=== PATIENT | female | born 1985 | race Caucasian/White ===

== ENCOUNTER 2017-06-23 17:16 | Emergency (ER) | payer MEDICAID ==
[~2017-06-23] VITALS: Ht 154.9 cm; Wt 70.0 kg
[~2017-06-23 17:16] MED LIST: IBUP-779 PO
[2017-06-24] MEDS ORDERED: ACETAMINOPHEN 325MG TABLET PO PRN (06:45)
[2017-06-24 07:13] LABS: BASOPHILS % 0.4 % (0.0-2.0); EOSINOPHILS % 1.7 % (0.0-5.0); HEMATOCRIT. 38.3 % (36.0-48.0); HEMOGLOBIN. 12.5 g/dL (12.0-16.0); LYMPHOCYTES % 24.8 % (20.0-50.0); MEAN CORPUSCULAR HEMOGLOBIN 28.8 pg (28.0-32.0); MEAN CORPUSCULAR VOLUME 87.8 fL (81.0-99.0); MEAN PLATELET VOLUME 8.1 fl (7.4-10.4); MONOCYTES % 7.3 % (2.0-8.0); NEUTROPHILS % 65.8 % (40.0-76.0); PLATELET 303 x1000/uL (130-400); RED BLOOD CELL COUNT 4.36 mill/uL (4.2-5.4); RED CELL DISTRIBUTION WIDTH 14.7 % (11.6-14.6)
[2017-06-24 07:29] LABS: CARBON DIOXIDE 27 mEq/L (21-32); CHLORIDE 105 mEq/L (98-107)
[2017-06-24 08:12] LABS: COLOR URINE YELLOW (YELLOW); KETONES URINE NEGATIVE (NEGATIVE); LEUKOCYTE ESTERASE URINE 1+ (NEGATIVE); NITRITE URINE NEGATIVE (NEGATIVE); OCCULT BLOOD URINE 3+ (NEGATIVE); PROTEIN URINE NEGATIVE (NEGATIVE); SPECIFIC GRAVITY URINE 1.017 (1.005-1.030); UROBILINOGEN URINE 0.2 E.U./dL (0.2-1.0)
[2017-06-24 08:13] LABS: CLARITY URINE SL HAZY (CLEAR)
[2017-06-24 08:48] LABS: B-HCG QUANTITATIVE 2390 mIU/mL (<3)
[2017-06-24 09:25] VITALS: BP 98/53
== END 2017-06-24 09:27 | disposition home or self-care (01) ==
LOC: ER 20:24
DX: O20.0 Threatened abortion (principal); O23.41 Unspecified infection of urinary tract in pregnancy, first trimester; N39.0 Urinary tract infection, site not specified; Z3A.01 Less than 8 weeks gestation of pregnancy
CPT/HCPCS: 36415; 76801; 80053; 81001; 84702; 85025; 86900; 99285

== ENCOUNTER 2017-06-24 15:25 | Emergency (ER) | payer MEDICAID ==
[~2017-06-24] VITALS: Ht 144.8 cm; Wt 70.0 kg
[2017-06-24 15:43] VITALS: BP 125/77
== END 2017-06-24 22:00 | disposition left against medical advice (07) ==
LOC: ER 15:47
DX: Z53.21 Procedure and treatment not carried out due to patient leaving prior to being seen by health care provider (principal)

== ENCOUNTER 2017-10-29 20:26 | Emergency (ER) | payer BC, MEDICAID ==
[~2017-10-29] VITALS: Ht 162.6 cm; Wt 79.0 kg
[2017-10-29 22:18] LABS: CLARITY URINE TURBID (CLEAR); COLOR URINE ORANGE (YELLOW); KETONES URINE NEGATIVE (NEGATIVE); LEUKOCYTE ESTERASE URINE 2+ (NEGATIVE); NITRITE URINE NEGATIVE (NEGATIVE); OCCULT BLOOD URINE 3+ (NEGATIVE); PROTEIN URINE 3+ (NEGATIVE); SPECIFIC GRAVITY URINE 1.022 (1.005-1.030)
[2017-10-30] MEDS ORDERED: IBUPROFEN 600MG TABLET PO ONE (02:45)
[2017-10-30 03:28] VITALS: BP 101/51
== END 2017-10-30 03:30 | disposition home or self-care (01) ==
LOC: ER 20:26
DX: N39.0 Urinary tract infection, site not specified (principal); K21.9 Gastro-esophageal reflux disease without esophagitis
CPT/HCPCS: 81003; 81025; 87086; 99284; Z7610

== ENCOUNTER 2019-02-25 21:22 | Emergency (ER) | payer BC, MEDICAID ==
[~2019-02-25] VITALS: Ht 154.9 cm; Wt 70.0 kg
[2019-02-25 21:35] VITALS: BP 108/68
== END 2019-02-26 01:33 | disposition left against medical advice (07) ==
LOC: ER 21:22
DX: O26.891 Other specified pregnancy related conditions, first trimester (principal); R10.9 Unspecified abdominal pain; Z3A.08 8 weeks gestation of pregnancy; Z53.21 Procedure and treatment not carried out due to patient leaving prior to being seen by health care provider

== ENCOUNTER 2019-04-11 22:16 | Emergency (ER) | payer MEDICAID ==
[~2019-04-11] VITALS: Ht 165.1 cm; Wt 69.1 kg
[2019-04-12 01:30] VITALS: BP 109/61
[2019-04-14] MEDS ORDERED: IBUP-2029 MT (11:21)
[2019-04-14] MEDS ORDERED: NITR-87 MT (11:21)
== END 2019-04-12 01:34 | disposition home or self-care (01) ==
LOC: ER 22:16
DX: O03.9 Complete or unspecified spontaneous abortion without complication (principal); Z04.89 Encounter for examination and observation for other specified reasons
CPT/HCPCS: 99283

== ENCOUNTER 2019-04-14 04:15 | Day surgery (SDC) | payer MEDICAID ==
[~2019-04-14] VITALS: Ht 144.8 cm; Wt 64.0 kg
[2019-04-14] MEDS ORDERED: SODIUM CHLORIDE 0.9% 1,000 ML IV ONE ×2 (06:03→08:14)
[2019-04-14 06:16] LABS: BASOPHILS % 0.5 % (0.0-2.0); HEMATOCRIT. 36.7 % (36.0-48.0); HEMOGLOBIN. 12.6 g/dL (12.0-16.0); LYMPHOCYTES % 19.6 % (20.0-50.0); MEAN CORPUSCULAR HEMOGLOBIN 30.8 pg (28.0-32.0); MEAN CORPUSCULAR VOLUME 90.2 fL (81.0-99.0); MONOCYTES % 4.7 % (2.0-8.0); NEUTROPHILS % 74.2 % (40.0-76.0); PLATELET 252 x1000/uL (130-400); RED BLOOD CELL COUNT 4.07 mill/uL (4.2-5.4); RED CELL DISTRIBUTION WIDTH 13.6 % (11.6-14.6)
[2019-04-14 06:22] LABS: CHLORIDE 112 mEq/L (98-107)
[2019-04-14 06:24] LABS: INR 2.5; PROTHROMBIN TIME 25.3 sec (9.6-11.0)
[2019-04-14 06:35] LABS: B-HCG QUANTITATIVE 79 mIU/mL (<3)
[2019-04-14 06:40] LABS: CLARITY URINE TURBID (CLEAR); COLOR URINE RED (YELLOW); KETONES URINE 2+ (NEGATIVE); LEUKOCYTE ESTERASE URINE 3+ (NEGATIVE); NITRITE URINE POSITIVE (NEGATIVE); OCCULT BLOOD URINE 3+ (NEGATIVE); PROTEIN URINE 2+ (NEGATIVE); SPECIFIC GRAVITY URINE 1.019 (1.005-1.030)
[2019-04-14] MEDS ORDERED: MORPHINE SULFATE 4 MG/ML CPJ (NOT FOR IM USE) IV ONE (07:00)
[2019-04-14] MEDS ORDERED: ONDANSETRON HCL 4MG/2ML INJ IV ONE (07:00)
[2019-04-14] MEDS ORDERED: CEFAZOLIN 1000MG PREMIX 50 ML IV ONE (09:00)
[2019-04-14] MEDS ORDERED: PROPOFOL 200MG/20ML VIAL IV ONE (10:31)
[2019-04-14] MEDS ORDERED: FENTANYL CITRATE/PF 50MCG/ML 2ML VIAL ONE (10:31)
[2019-04-14] MEDS ORDERED: GLYCOPYRROLATE 0.2 MG/ML 2ML VIAL ONE (10:32)
[2019-04-14] MEDS ORDERED: ONDANSETRON HCL 4MG/2ML INJ ONE (10:48)
[2019-04-14] MEDS ORDERED: METOCLOPRAMIDE HCL 10MG/2ML VIAL ONE (10:48)
[2019-04-14 10:59] LABS: PROTHROMBIN TIME 10.7 sec (9.6-11.0)
[2019-04-14] MEDS ORDERED: IBUPROFEN 800MG TABLET PO SCH (11:15)
[2019-04-14] MEDS ORDERED: NITR-87 MT (11:21)
[2019-04-14] MEDS ORDERED: IBUP-2029 MT (11:21)
[2019-04-14 13:19] VITALS: BP 94/50
== END 2019-04-14 11:00 | disposition home or self-care (01) ==
LOC: ER 04:15 → OR 09:00 → CANBEDREQ 04-15 00:02
PROVIDERS: ATTEND Obstetrics & Gynecology
DX: O03.4 Incomplete spontaneous abortion without complication (principal); O02.1 Missed abortion; O23.42 Unspecified infection of urinary tract in pregnancy, second trimester; O99.112 Other diseases of the blood and blood-forming organs and certain disorders involving the immune mechanism complicating pregnancy, second trimester; O03.33 Metabolic disorder following incomplete spontaneous abortion; E87.8 Other disorders of electrolyte and fluid balance, not elsewhere classified; Z3A.17 17 weeks gestation of pregnancy
CPT/HCPCS: 36415; 59820; 76801; 76817; 80053; 81003; 81025; 84702; 85025; 85610; 86850; 86900; 86901; 86920; 88305; 93005; 96365; 96375; 99291; C1758; J0690; J2270; J2405; J2704; J2765; J3010; J3490; J7030

== ENCOUNTER 2019-08-20 19:24 | Emergency (ER) | payer MEDICAID ==
[~2019-08-20] VITALS: Ht 144.8 cm; Wt 70.0 kg
[~2019-08-20 19:24] MED LIST changes: +IBUP-2029 MT; +NITR-87 MT
[2019-08-20] MEDS ORDERED: ACETAMINOPHEN 325MG TABLET PO PRN (23:45)
[2019-08-21 00:13] LABS: BASOPHILS % 0.6 % (0.0-2.0); EOSINOPHILS % 1.2 % (0.0-5.0); HEMOGLOBIN. 13.2 g/dL (12.0-16.0); LYMPHOCYTES % 29.6 % (20.0-50.0); MEAN CORPUSCULAR HEMOGLOBIN 30.6 pg (28.0-32.0); MEAN CORPUSCULAR VOLUME 87.8 fL (81.0-99.0); MEAN PLATELET VOLUME 7.7 fl (7.4-10.4); MONOCYTES % 5.7 % (2.0-8.0); NEUTROPHILS % 62.9 % (40.0-76.0); PLATELET 283 x1000/uL (130-400); RED BLOOD CELL COUNT 4.33 mill/uL (4.2-5.4); RED CELL DISTRIBUTION WIDTH 13.8 % (11.6-14.6)
[2019-08-21 00:23] LABS: CHLORIDE 107 mEq/L (98-107)
[2019-08-21 00:47] LABS: B-HCG QUANTITATIVE 32298 mIU/mL (<3)
[2019-08-21 00:50] LABS: CLARITY URINE CLOUDY (CLEAR); COLOR URINE YELLOW (YELLOW)
[2019-08-21 00:51] LABS: KETONES URINE 1+ (NEGATIVE); NITRITE URINE POSITIVE (NEGATIVE); OCCULT BLOOD URINE TRACE (NEGATIVE); PH URINE 5.5 (4.5-8.0); PROTEIN URINE NEGATIVE (NEGATIVE); SPECIFIC GRAVITY URINE 1.022 (1.005-1.030)
[2019-08-21 00:52] LABS: LEUKOCYTE ESTERASE URINE 1+ (NEGATIVE)
[2019-08-21] MEDS ORDERED: CEPHALEXIN 250MG CAPSULE PO SCH (01:30)
[2019-08-21 01:35] VITALS: BP 101/72
== END 2019-08-21 01:36 | disposition home or self-care (01) ==
LOC: ER 19:24
DX: O23.42 Unspecified infection of urinary tract in pregnancy, second trimester (principal); Z3A.15 15 weeks gestation of pregnancy
CPT/HCPCS: 36415; 76805; 80053; 81003; 81025; 84702; 85025; 86850; 86900; 99284

== ENCOUNTER 2019-11-21 17:58 | Inpatient (IN) | payer MEDICAID, OTHER ==
[~2019-11-21] VITALS: Ht 154.9 cm; Wt 76.2 kg
[2019-11-21] MEDS ORDERED: ACETAMINOPHEN 325MG TABLET PO STA (19:15)
[2019-11-21 22:04] LABS: BASOPHILS % 0.3 % (0.0-2.0); HEMATOCRIT. 33.6 % (36.0-48.0); HEMOGLOBIN. 11.6 g/dL (12.0-16.0); LYMPHOCYTES % 14.5 % (20.0-50.0); MEAN CORPUSCULAR HEMOGLOBIN 31.4 pg (28.0-32.0); MEAN CORPUSCULAR VOLUME 91.3 fL (81.0-99.0); MEAN PLATELET VOLUME 8.3 fl (7.4-10.4); MONOCYTES % 2.6 % (2.0-8.0); NEUTROPHILS % 82.6 % (40.0-76.0); PLATELET 200 x1000/uL (130-400); RED BLOOD CELL COUNT 3.68 mill/uL (4.2-5.4); RED CELL DISTRIBUTION WIDTH 14.1 % (11.6-14.6)
[2019-11-21 22:09] LABS: CLARITY URINE TURBID (CLEAR); COLOR URINE DARK YELLOW (YELLOW); KETONES URINE 4+ (NEGATIVE); LEUKOCYTE ESTERASE URINE 3+ (NEGATIVE); NITRITE URINE POSITIVE (NEGATIVE); OCCULT BLOOD URINE NEGATIVE (NEGATIVE); PROTEIN URINE 2+ (NEGATIVE); SPECIFIC GRAVITY URINE 1.025 (1.005-1.030)
[2019-11-21 22:14] LABS: CHLORIDE 105 mEq/L (98-107)
[2019-11-21 22:15] LABS: HCG SCREEN POSITIVE
[2019-11-21 23:44] VITALS: BP 90/41
[2019-11-21] MEDS ORDERED: POTASSIUM CHLORIDE 20MEQ TABLET SR PO NR (23:45)
[2019-11-21] MEDS ORDERED: ACETAMINOPHEN 325MG TABLET PO PRN (23:45)
[2019-11-21] MEDS ORDERED: DIPHENHYDRAMINE 50MG/ML VIAL IV PRN (23:45)
[2019-11-21] MEDS ORDERED: ALBUTEROL 6.7GM HFA INHALER ORI PRN (23:45)
[2019-11-21] MEDS ORDERED: IBUPROFEN 600MG TABLET PO PRN (23:45)
[2019-11-22] VITALS (7 sets, daily range): BP systolic 89–97; BP diastolic 41–54
[2019-11-22] MEDS ORDERED: MAGNESIUM/ALUMINUM HYDROXIDE/SIMETHICONE 30ML UDC PO PRN
[2019-11-22] MEDS: GUAIFENESIN 200MG/10ML SUGAR FREE UDC PO PRN ×2 (01:08→20:55)
[2019-11-22] MEDS: CEFTRIAXONE 1 G PREMIX 50 ML IV SCH (01:46)
[2019-11-22] MEDS: SODIUM CHLORIDE 0.9% INJ 3ML FLUSH IVF SCH ×3 (06:00→20:55)
[2019-11-22] MEDS: FOLIC ACID 1MG TABLET PO SCH (08:53)
[2019-11-22] MEDS: PRENATAL VIT/FE FUMARATE/FA TABLET PO SCH (08:53)
[2019-11-22] MEDS: GUAIFENESIN 600MG ER TABLET PO SCH ×2 (08:53→20:55)
[2019-11-22] MEDS: ALBUTEROL 6.7GM HFA INHALER ORI SCH ×3 (10:45→22:45)
[2019-11-22] MEDS: ACETAMINOPHEN 325MG TABLET PO PRN (21:42)
[2019-11-23] MEDS: CEFTRIAXONE 1 G PREMIX 50 ML IV SCH (01:24)
[2019-11-23 04:00] VITALS: BP 103/47
[2019-11-23] MEDS: ALBUTEROL 6.7GM HFA INHALER ORI SCH ×4 (04:06→22:17)
[2019-11-23] MEDS: SODIUM CHLORIDE 0.9% INJ 3ML FLUSH IVF SCH ×2 (05:27→22:05)
[2019-11-23 05:47] LABS: *AMPHETAMINES SCREEN URINE NEGATIVE (NEGATIVE); *BARBITURATES SCREEN URINE NEGATIVE (NEGATIVE)
[2019-11-23 05:48] LABS: *BENZODIAZEPINES SCREEN URINE NEGATIVE (NEGATIVE); *COCAINE SCREEN URINE NEGATIVE (NEGATIVE); METHADONE URINE SCREEN NEGATIVE (NEGATIVE); OPIATES URINE SCREEN NEGATIVE (NEGATIVE); PHENCYCLIDINE URINE SCREEN NEGATIVE (NEGATIVE)
[2019-11-23 05:49] LABS: CANNABINOID URINE SCREEN NEGATIVE (NEGATIVE)
[2019-11-23 06:13] LABS: CHLORIDE 106 mEq/L (98-107)
[2019-11-23 08:00] VITALS: BP 95/52
[2019-11-23] MEDS: GUAIFENESIN 600MG ER TABLET PO SCH ×2 (08:17→22:16)
[2019-11-23] MEDS: PRENATAL VIT/FE FUMARATE/FA TABLET PO SCH (08:17)
[2019-11-23] MEDS: FOLIC ACID 1MG TABLET PO SCH (08:17)
[2019-11-23] MEDS ORDERED: POTASSIUM CHLORIDE 20MEQ TABLET SR PO NR ×2 (09:30→12:30)
[2019-11-23] MEDS: ACETAMINOPHEN 325MG TABLET PO PRN (11:21)
[2019-11-23 12:00] VITALS: BP 90/42
[2019-11-23] MEDS: AZITHROMYCIN 250 MG TABLET PO SCH (13:11)
[2019-11-23] MEDS ORDERED: REMDESIVIR 200 MG in SODIUM CHLORIDE 0.9% 250 ML IV NR (15:00)
[2019-11-23] MEDS: ENOXAPARIN 40MG/0.4ML SYR SUBCUT SCH (15:25)
[2019-11-23 16:00] VITALS: BP 90/52
[2019-11-23 20:00] VITALS: BP 99/62
[2019-11-24] VITALS (8 sets, daily range): BP systolic 81–115; BP diastolic 39–80
[2019-11-24] MEDS: CEFTRIAXONE 1 G PREMIX 50 ML IV SCH (01:14)
[2019-11-24] MEDS: SODIUM CHLORIDE 0.9% INJ 3ML FLUSH IVF SCH ×4 (02:26→21:14)
[2019-11-24] MEDS: ALBUTEROL 6.7GM HFA INHALER ORI SCH ×4 (04:51→22:26)
[2019-11-24 08:28] LABS: CHLORIDE 111 mEq/L (98-107)
[2019-11-24] MEDS: PRENATAL VIT/FE FUMARATE/FA TABLET PO SCH (08:47)
[2019-11-24] MEDS: GUAIFENESIN 600MG ER TABLET PO SCH ×2 (08:47→21:14)
[2019-11-24] MEDS: AZITHROMYCIN 250 MG TABLET PO SCH (08:47)
[2019-11-24] MEDS: FOLIC ACID 1MG TABLET PO SCH (08:47)
[2019-11-24] MEDS: ENOXAPARIN 40MG/0.4ML SYR SUBCUT SCH (08:48)
[2019-11-24] MEDS ORDERED: DEXT 5%/0.45% NACL KCL 20MEQ/L 1,000 ML IV SCH (09:30)
[2019-11-24] MEDS ORDERED: SODIUM CHLORIDE 0.9% 1,000 ML IV ONE (10:45)
[2019-11-24] MEDS: THROAT LOZENGES-BENZOCAINE/MENTH/CETYLPYRD CL LOZENGES MM PRN (12:26)
[2019-11-24] MEDS: REMDESIVIR 100 MG in SODIUM CHLORIDE 0.9% 250 ML IV SCH (15:25)
[2019-11-25] VITALS: BP 80/43
[2019-11-25] MEDS: CEFTRIAXONE 1 G PREMIX 50 ML IV SCH (00:19)
[2019-11-25 04:00] VITALS: BP 89/53
[2019-11-25] MEDS: THROAT LOZENGES-BENZOCAINE/MENTH/CETYLPYRD CL LOZENGES MM PRN (04:13)
[2019-11-25] MEDS: ALBUTEROL 6.7GM HFA INHALER ORI SCH ×4 (04:23→21:47)
[2019-11-25] MEDS: SODIUM CHLORIDE 0.9% INJ 3ML FLUSH IVF SCH ×3 (05:43→21:47)
[2019-11-25 08:00] VITALS: BP 85/54
[2019-11-25] MEDS: PRENATAL VIT/FE FUMARATE/FA TABLET PO SCH (08:43)
[2019-11-25] MEDS: GUAIFENESIN 600MG ER TABLET PO SCH ×2 (08:43→21:46)
[2019-11-25] MEDS: FOLIC ACID 1MG TABLET PO SCH (08:43)
[2019-11-25] MEDS: AZITHROMYCIN 250 MG TABLET PO SCH (08:43)
[2019-11-25] MEDS: ENOXAPARIN 40MG/0.4ML SYR SUBCUT SCH (08:43)
[2019-11-25 08:49] LABS: CHLORIDE 111 mEq/L (98-107)
[2019-11-25 12:00] VITALS: BP 82/50
[2019-11-25] MEDS: REMDESIVIR 100 MG in SODIUM CHLORIDE 0.9% 250 ML IV SCH (15:15)
[2019-11-25 16:00] VITALS: BP 88/56
[2019-11-25 20:00] VITALS: BP 86/50
[2019-11-26] MEDS: CEFTRIAXONE 1 G PREMIX 50 ML IV SCH
[2019-11-26 00:09] VITALS: BP 82/47
[2019-11-26 04:00] VITALS: BP 84/50
[2019-11-26] MEDS: ALBUTEROL 6.7GM HFA INHALER ORI SCH ×4 (04:06→22:45)
[2019-11-26] MEDS: SODIUM CHLORIDE 0.9% INJ 3ML FLUSH IVF SCH ×3 (05:01→23:08)
[2019-11-26 07:53] LABS: CHLORIDE 110 mEq/L (98-107)
[2019-11-26 08:00] VITALS: BP 86/50
[2019-11-26] MEDS: AZITHROMYCIN 250 MG TABLET PO SCH (08:03)
[2019-11-26] MEDS: GUAIFENESIN 600MG ER TABLET PO SCH ×2 (08:03→23:08)
[2019-11-26] MEDS: PRENATAL VIT/FE FUMARATE/FA TABLET PO SCH (08:03)
[2019-11-26] MEDS: ENOXAPARIN 40MG/0.4ML SYR SUBCUT SCH (08:03)
[2019-11-26] MEDS: FOLIC ACID 1MG TABLET PO SCH (08:03)
[2019-11-26 12:00] VITALS: BP 97/55
[2019-11-26] MEDS: REMDESIVIR 100 MG in SODIUM CHLORIDE 0.9% 250 ML IV SCH (14:07)
[2019-11-26 16:00] VITALS: BP 99/58
[2019-11-26 20:00] VITALS: BP 95/47
[2019-11-27 00:20] VITALS: BP 86/45
[2019-11-27] MEDS: CEFTRIAXONE 1 G PREMIX 50 ML IV SCH (00:23)
[2019-11-27 04:00] VITALS: BP 91/49
[2019-11-27] MEDS: ALBUTEROL 6.7GM HFA INHALER ORI SCH ×4 (04:45→23:27)
[2019-11-27] MEDS: SODIUM CHLORIDE 0.9% INJ 3ML FLUSH IVF SCH ×3 (06:00→21:11)
[2019-11-27 07:19] LABS: CHLORIDE 109 mEq/L (98-107)
[2019-11-27 08:00] VITALS: BP 90/41
[2019-11-27] MEDS: AZITHROMYCIN 250 MG TABLET PO SCH (09:54)
[2019-11-27] MEDS: GUAIFENESIN 600MG ER TABLET PO SCH ×2 (09:54→21:11)
[2019-11-27] MEDS: ENOXAPARIN 40MG/0.4ML SYR SUBCUT SCH (09:54)
[2019-11-27] MEDS: PRENATAL VIT/FE FUMARATE/FA TABLET PO SCH (09:54)
[2019-11-27] MEDS: FOLIC ACID 1MG TABLET PO SCH (09:54)
[2019-11-27 12:00] VITALS: BP 94/51
[2019-11-27 16:00] VITALS: BP 93/48
[2019-11-27] MEDS: REMDESIVIR 100 MG in SODIUM CHLORIDE 0.9% 250 ML IV SCH (16:02)
[2019-11-27 20:00] VITALS: BP 91/38
[2019-11-28] VITALS: BP 132/86
[2019-11-28 04:00] VITALS: BP 92/47
[2019-11-28] MEDS: SODIUM CHLORIDE 0.9% INJ 3ML FLUSH IVF SCH ×3 (05:08→21:51)
[2019-11-28] MEDS: ALBUTEROL 6.7GM HFA INHALER ORI SCH ×4 (05:08→21:51)
[2019-11-28 07:45] LABS: CHLORIDE 109 mEq/L (98-107)
[2019-11-28 08:00] VITALS: BP 87/51
[2019-11-28] MEDS: PRENATAL VIT/FE FUMARATE/FA TABLET PO SCH (08:21)
[2019-11-28] MEDS: ENOXAPARIN 40MG/0.4ML SYR SUBCUT SCH (08:21)
[2019-11-28] MEDS: AZITHROMYCIN 250 MG TABLET PO SCH (08:21)
[2019-11-28] MEDS: GUAIFENESIN 600MG ER TABLET PO SCH ×2 (08:21→21:51)
[2019-11-28] MEDS: FOLIC ACID 1MG TABLET PO SCH (08:21)
[2019-11-28 12:00] VITALS: BP 94/52
[2019-11-28] MEDS ORDERED: SODIUM CHLORIDE 0.9% 1,000 ML IV ONE (13:45)
[2019-11-28 16:00] VITALS: BP 90/53
[2019-11-28 20:00] VITALS: BP 92/49
[2019-11-29] VITALS: BP 94/50
[2019-11-29 04:00] VITALS: BP 89/46
[2019-11-29] MEDS: ALBUTEROL 6.7GM HFA INHALER ORI SCH ×2 (05:08→10:09)
[2019-11-29] MEDS: SODIUM CHLORIDE 0.9% INJ 3ML FLUSH IVF SCH ×2 (05:09→13:49)
[2019-11-29 08:00] VITALS: BP_SYST 81; BP_SYST 84; BP_DIAS 34
[2019-11-29] MEDS: GUAIFENESIN 600MG ER TABLET PO SCH (08:24)
[2019-11-29] MEDS: FOLIC ACID 1MG TABLET PO SCH (08:24)
[2019-11-29] MEDS: PRENATAL VIT/FE FUMARATE/FA TABLET PO SCH (08:24)
[2019-11-29] MEDS: ENOXAPARIN 40MG/0.4ML SYR SUBCUT SCH (08:25)
[2019-11-29] MEDS ORDERED: ALBUMIN HUMAN 25GM/100ML (25%) IV NR (09:00)
[2019-11-29] MEDS ORDERED: ALBU6.7H9 ORI (11:59)
[2019-11-29] MEDS ORDERED: AZIT250T12 PO (11:59)
[2019-11-29] MEDS ORDERED: PREN1COM16 MT (11:59)
[2019-11-29 12:00] VITALS: BP 90/40
[2019-11-29 12:17] VITALS: BP 90/40
== END 2019-11-29 13:50 | disposition home or self-care (01) | DRG 566 ==
LOC: ER 17:58 → MICUSO 22:39 → 7WST 23:50
PROVIDERS: ADMIT Internal Medicine; ATTEND Internal Medicine
DX: O98.812 Other maternal infectious and parasitic diseases complicating pregnancy, second trimester (principal); A41.89 Other specified sepsis; U07.1 COVID-19; J96.01 Acute respiratory failure with hypoxia; R17 Unspecified jaundice; O23.42 Unspecified infection of urinary tract in pregnancy, second trimester; O98.512 Other viral diseases complicating pregnancy, second trimester; B97.89 Other viral agents as the cause of diseases classified elsewhere; J12.89 Other viral pneumonia; O99.512 Diseases of the respiratory system complicating pregnancy, second trimester; O98.513 Other viral diseases complicating pregnancy, third trimester; R74.0 Nonspecific elevation of levels of transaminase and lactic acid dehydrogenase [LDH]; Z3A.27 27 weeks gestation of pregnancy; Z79.1 Long term (current) use of non-steroidal anti-inflammatories (NSAID); Z79.899 Other long term (current) drug therapy; Z87.440 Personal history of urinary (tract) infections
CPT/HCPCS: 36415; 71045; 76805; 76818; 80048; 80053; 80305; 81003; 82728; 83735; 84145; 84703; 85025; 86140; 93005; 99285; J0696; J1650; J7050; P9047; Q9957; U0003-CS

== ENCOUNTER 2020-02-07 23:32 | Inpatient (IN) | payer MEDICAID ==
[~2020-02-07] VITALS: Ht 149.9 cm; Wt 77.1 kg
[~2020-02-07 23:32] MED LIST changes: +ALBU6.7H9 ORI; +AZIT250T12 PO; +PREN1COM16 MT
[2020-02-08] MEDS ORDERED: LACTATED RINGERS 1,000 ML IV SCH (00:12)
[2020-02-08] MEDS ORDERED: DEXT 5%/LR + PITOCIN 20UNITS/L 1,000 ML IV SCH ×2 (00:12→02:12)
[2020-02-08] MEDS ORDERED: BUTORPHANOL TARTRATE 2 MG/ML VIAL IV PRN (00:15)
[2020-02-08] MEDS ORDERED: LIDOCAINE HCL 1% 20ML VIAL (Pyxis) INJ INFIL SCH (00:15)
[2020-02-08] MEDS ORDERED: NALOXONE HCL 0.4 MG/ML 1ML VIAL IM PRN (00:15)
[2020-02-08] MEDS ORDERED: METHYLERGONOVINE MALEATE 0.2 MG/ML IM PRN (00:15)
[2020-02-08] MEDS ORDERED: CARBOPROST TROMETHAMINE 250 MCG/ML AMPUL IM PRN (00:15)
[2020-02-08] MEDS: AMPICILLIN 2,000 MG in SODIUM CHLORIDE 0.9% 100 ML IV SCH ×2 (00:41→00:49)
[2020-02-08 00:50] LABS: CLARITY URINE CLEAR (CLEAR); COLOR URINE DARK YELLOW (YELLOW); KETONES URINE NEGATIVE (NEGATIVE); LEUKOCYTE ESTERASE URINE 1+ (NEGATIVE); NITRITE URINE NEGATIVE (NEGATIVE); OCCULT BLOOD URINE NEGATIVE (NEGATIVE); PH URINE 5.5 (4.5-8.0); PROTEIN URINE TRACE (NEGATIVE); SPECIFIC GRAVITY URINE 1.029 (1.005-1.030)
[2020-02-08 01:02] LABS: *AMPHETAMINES SCREEN URINE NEGATIVE (NEGATIVE); *BARBITURATES SCREEN URINE NEGATIVE (NEGATIVE); *BENZODIAZEPINES SCREEN URINE NEGATIVE (NEGATIVE); *COCAINE SCREEN URINE NEGATIVE (NEGATIVE); CANNABINOID URINE SCREEN NEGATIVE (NEGATIVE); METHADONE URINE SCREEN NEGATIVE (NEGATIVE); OPIATES URINE SCREEN NEGATIVE (NEGATIVE); PHENCYCLIDINE URINE SCREEN NEGATIVE (NEGATIVE)
[2020-02-08 01:06] LABS: BASOPHILS % 0.3 % (0.0-2.0); EOSINOPHILS % 0.9 % (0.0-5.0); HEMATOCRIT. 32.4 % (36.0-48.0); HEMOGLOBIN. 10.9 g/dL (12.0-16.0); LYMPHOCYTES % 23.9 % (20.0-50.0); MEAN CORPUSCULAR HEMOGLOBIN 28.9 pg (28.0-32.0); MEAN PLATELET VOLUME 8.1 fl (7.4-10.4); MONOCYTES % 6.9 % (2.0-8.0); PLATELET 280 x1000/uL (130-400); RED BLOOD CELL COUNT 3.77 mill/uL (4.2-5.4); RED CELL DISTRIBUTION WIDTH 15.4 % (11.6-14.6)
[2020-02-08 01:29] LABS: HEPATITIS B SURFACE ANTIGEN NEGATIVE
[2020-02-08 01:36] LABS: INR 0.9; PARTIAL THROMBOPLASTIN TIME 26.3 sec (23.4-31.0); PROTHROMBIN TIME 9.5 sec (9.6-11.0)
[2020-02-08] MEDS ORDERED: METHYLERGONOVINE MALEATE 0.2 MG/ML ONE (02:00)
[2020-02-08] MEDS ORDERED: RHO(D) IMMUNE GLOBULIN 300 MCG/SYR IM PRN (02:15)
[2020-02-08] MEDS ORDERED: IBUPROFEN 400MG TABLET PO PRN (02:15)
[2020-02-08 04:15] VITALS: BP 104/51
[2020-02-08] MEDS ORDERED: AMPICILLIN 1,000 MG in SODIUM CHLORIDE 0.9% 50 ML IV SCH (06:00)
[2020-02-08 06:12] LABS: BASOPHILS % 0.5 % (0.0-2.0); EOSINOPHILS % 0.3 % (0.0-5.0); HEMATOCRIT. 33.7 % (36.0-48.0); HEMOGLOBIN. 11.3 g/dL (12.0-16.0); LYMPHOCYTES % 11.8 % (20.0-50.0); MEAN CORPUSCULAR HEMOGLOBIN 28.7 pg (28.0-32.0); MEAN CORPUSCULAR VOLUME 85.1 fL (81.0-99.0); MEAN PLATELET VOLUME 8.4 fl (7.4-10.4); MONOCYTES % 3.8 % (2.0-8.0); NEUTROPHILS % 83.6 % (40.0-76.0); PLATELET 259 x1000/uL (130-400); RED BLOOD CELL COUNT 3.96 mill/uL (4.2-5.4); RED CELL DISTRIBUTION WIDTH 15.3 % (11.6-14.6)
[2020-02-08] MEDS: IBUPROFEN 800MG TABLET PO PRN ×2 (07:18→14:50)
[2020-02-08 07:54] VITALS: BP 104/55
[2020-02-08 20:00] VITALS: BP 91/51
[2020-02-09] MEDS: IBUPROFEN 800MG TABLET PO PRN ×2 (02:42→08:25)
[2020-02-09 04:00] VITALS: BP 109/53
[2020-02-09 07:31] VITALS: BP 91/52
[2020-02-09 09:07] LABS: BASOPHILS % 0.5 % (0.0-2.0); EOSINOPHILS % 0.6 % (0.0-5.0); HEMATOCRIT. 32.7 % (36.0-48.0); HEMOGLOBIN. 10.8 g/dL (12.0-16.0); LYMPHOCYTES % 19.3 % (20.0-50.0); MEAN CORPUSCULAR HEMOGLOBIN 28.5 pg (28.0-32.0); MEAN CORPUSCULAR VOLUME 86.3 fL (81.0-99.0); MEAN PLATELET VOLUME 8.1 fl (7.4-10.4); MONOCYTES % 3.4 % (2.0-8.0); NEUTROPHILS % 76.2 % (40.0-76.0); PLATELET 250 x1000/uL (130-400); RED BLOOD CELL COUNT 3.79 mill/uL (4.2-5.4); RED CELL DISTRIBUTION WIDTH 15.5 % (11.6-14.6)
== END 2020-02-09 12:10 | disposition home or self-care (01) | DRG 560 ==
LOC: OBSVTOIN 23:32 → 8 EST LDRP 23:32 → 8EST 02-08 04:11
PROVIDERS: ADMIT Obstetrics & Gynecology; ATTEND Obstetrics & Gynecology
PROC: 10E0XZZ Delivery of Products of Conception, External Approach (ICD-10-PCS; principal; 2020-02-08)
DX: O99.02 Anemia complicating childbirth (principal); Z3A.39 39 weeks gestation of pregnancy; Z37.0 Single live birth; D62 Acute posthemorrhagic anemia
CPT/HCPCS: 36415; 80305; 81003; 85025; 86592; 86703; 86762; 86850; 86900; 87340; 99281; G0378; J0290; J0595; J2210; J2590; J7050

== ENCOUNTER 2020-05-29 09:39 | Emergency (ER) | payer MEDICAID ==
[~2020-05-29] VITALS: Ht 157.5 cm; Wt 65.0 kg
[~2020-05-29 09:39] MED LIST changes: -ALBU6.7H9 ORI; -AZIT250T12 PO; -NITR-87 MT; -PREN1COM16 MT
[2020-05-29 09:46] VITALS: BP 113/70
[2020-05-29 10:41] LABS: CLARITY URINE TURBID (CLEAR); KETONES URINE TRACE (NEGATIVE); LEUKOCYTE ESTERASE URINE 3+ (NEGATIVE); NITRITE URINE NEGATIVE (NEGATIVE); OCCULT BLOOD URINE 3+ (NEGATIVE); PH URINE 7.5 (4.5-8.0); PROTEIN URINE 1+ (NEGATIVE); SPECIFIC GRAVITY URINE 1.021 (1.005-1.030)
[2020-05-29] MEDS ORDERED: NITROFURANTOIN 100MG M/M CAPSULE PO ONE (10:45)
[2020-05-29] MEDS ORDERED: PHENAZOPYRIDINE HCL 100MG TABLET PO ONE (10:45)
[2020-05-29 10:48] LABS: COLOR URINE ORANGE (YELLOW)
== END 2020-05-29 11:41 | disposition home or self-care (01) ==
LOC: ER 09:39
DX: N39.0 Urinary tract infection, site not specified (principal)
CPT/HCPCS: 81003; 81025; 99283

== ENCOUNTER 2020-09-19 09:10 | Emergency (ER) | payer MEDICAID ==
[~2020-09-19] VITALS: Ht 165.1 cm; Wt 65.0 kg
[2020-09-19] MEDS ORDERED: ACETAMINOPHEN 325MG TABLET PO STA (10:01)
[2020-09-19 10:32] LABS: BASOPHILS % 0.5 % (0.0-2.0); EOSINOPHILS % 0.4 % (0.0-5.0); HEMATOCRIT. 33.5 % (36.0-48.0); HEMOGLOBIN. 11.5 g/dL (12.0-16.0); LYMPHOCYTES % 18.7 % (20.0-50.0); MEAN CORPUSCULAR HEMOGLOBIN 30.5 pg (28.0-32.0); MEAN CORPUSCULAR VOLUME 89.1 fL (81.0-99.0); MEAN PLATELET VOLUME 7.7 fl (7.4-10.4); MONOCYTES % 4.8 % (2.0-8.0); NEUTROPHILS % 75.6 % (40.0-76.0); PLATELET 267 x1000/uL (130-400); RED BLOOD CELL COUNT 3.76 mill/uL (4.2-5.4); RED CELL DISTRIBUTION WIDTH 14.3 % (11.6-14.6)
[2020-09-19 10:39] LABS: CHLORIDE 110 mEq/L (98-107)
[2020-09-19 10:43] LABS: INR 0.9; PROTHROMBIN TIME 10.2 sec (9.6-11.0)
[2020-09-19 11:01] LABS: B-HCG QUANTITATIVE 15326 mIU/mL (<3)
[2020-09-19 11:14] LABS: CLARITY URINE CLOUDY (CLEAR); COLOR URINE DARK YELLOW (YELLOW); KETONES URINE 1+ (NEGATIVE); LEUKOCYTE ESTERASE URINE 2+ (NEGATIVE); NITRITE URINE NEGATIVE (NEGATIVE); OCCULT BLOOD URINE NEGATIVE (NEGATIVE); PROTEIN URINE NEGATIVE (NEGATIVE); SPECIFIC GRAVITY URINE 1.026 (1.005-1.030)
[2020-09-19] MEDS ORDERED: PREN-52 MT (12:36)
[2020-09-19] MEDS ORDERED: CEPH500C2 MT (12:36)
[2020-09-19] MEDS ORDERED: CEFTRIAXONE SODIUM 500 MG/VIAL IM ONE (13:00)
[2020-09-19] MEDS ORDERED: AZITHROMYCIN 500 MG TABLET PO ONE (13:00)
[2020-09-19 13:25] VITALS: BP 112/52
[2020-09-23 07:07] LABS: NEISSERIA GONORRHOEAE NAA Equivocal (Negative)
== END 2020-09-19 13:35 | disposition home or self-care (01) ==
LOC: ER 09:10
DX: O23.42 Unspecified infection of urinary tract in pregnancy, second trimester (principal); Z20.2 Contact with and (suspected) exposure to infections with a predominantly sexual mode of transmission; Z3A.18 18 weeks gestation of pregnancy
CPT/HCPCS: 36415; 76805; 80053; 81003; 81025; 83690; 84702; 85025; 85610; 86850; 86900; 86901; 87491; 87591; 93005; 96372; 99285; J0696

== ENCOUNTER 2021-02-05 17:49 | Observation (INO) | payer OTHER, MEDICAID ==
[~2021-02-05] VITALS: Ht 157.5 cm; Wt 80.0 kg
[~2021-02-05 17:49] MED LIST changes: +CEPH500C2 MT; +PREN-52 MT
[2021-02-05] MEDS ORDERED: LIDOCAINE 5% PATCH TOP SCH (18:45)
[2021-02-05] MEDS ORDERED: ACETAMINOPHEN 325MG TABLET PO ONE (18:45)
[2021-02-05 19:50] VITALS: BP 100/56
[2021-02-05] MEDS ORDERED: ACET-2708 MT (19:51)
[2021-02-05] MEDS ORDERED: LIDO700A30 TP (19:51)
[2021-02-05] MEDS ORDERED: LACTATED RINGERS 1,000 ML IV NR (21:15)
[2021-02-05 21:40] LABS: HEMATOCRIT 34.1 % (36.0-48.0); HEMOGLOBIN 11.7 g/dL (12.0-16.0); MEAN CORPUSCULAR HEMOGLOBIN 30.6 pg (28.0-32.0); MEAN CORPUSCULAR VOLUME 89.2 fL (81.0-99.0); PLATELET 250 x1000/uL (130-400); RED BLOOD CELL COUNT 3.83 mill/uL (4.2-5.4); RED CELL DISTRIBUTION WIDTH 14.5 % (11.6-14.6)
[2021-02-05 21:46] LABS: CLARITY URINE TURBID (CLEAR); COLOR URINE DARK YELLOW (YELLOW); KETONES URINE TRACE (NEGATIVE); LEUKOCYTE ESTERASE URINE 2+ (NEGATIVE); NITRITE URINE NEGATIVE (NEGATIVE); OCCULT BLOOD URINE NEGATIVE (NEGATIVE); PH URINE 5.5 (4.5-8.0); PROTEIN URINE 1+ (NEGATIVE); SPECIFIC GRAVITY URINE 1.029 (1.005-1.030)
[2021-02-05] MEDS ORDERED: CEFAZOLIN 2,000 MG in DEXT 5% WATER 100 ML IV NR (23:00)
[2021-02-10] MEDS ORDERED: IBUP-2030 PO (09:41)
== END 2021-02-06 00:10 | disposition home or self-care (01) ==
LOC: ER 18:17 → 8 EST LDRP 20:21
PROVIDERS: ADMIT Obstetrics & Gynecology; ATTEND Obstetrics & Gynecology
DX: O99.891 Other specified diseases and conditions complicating pregnancy (principal); M79.632 Pain in left forearm; M54.9 Dorsalgia, unspecified; Z3A.36 36 weeks gestation of pregnancy; V03.10XA Pedestrian on foot injured in collision with car, pick-up truck or van in traffic accident, initial encounter; Y92.89 Other specified places as the place of occurrence of the external cause; Y93.89 Activity, other specified
CPT/HCPCS: 36415; 59025; 73090; 76805; 76818; 81003; 85027; 96361; 96365; 99285; G0378; J0690; J7060; 96360; 99281

== ENCOUNTER 2021-05-30 09:52 | Emergency (ER) | payer OTHER ==
[~2021-05-30] VITALS: Ht 144.8 cm; Wt 68.0 kg
[~2021-05-30 09:52] MED LIST changes: +ACET-2708 MT; -CEPH500C2 MT; -IBUP-2029 MT; +IBUP-2030 PO; -IBUP-779 PO; +LIDO700A30 TP
[2021-05-30 10:01] VITALS: BP 121/74
== END 2021-05-30 10:23 | disposition home or self-care (01) ==
LOC: ER 09:52
DX: Z48.02 Encounter for removal of sutures (principal)
CPT/HCPCS: 99281; Z7610

== ENCOUNTER 2021-06-30 09:07 | Emergency (ER) | payer OTHER ==
[~2021-06-30] VITALS: Ht 152.4 cm; Wt 62.0 kg
[2021-06-30 09:21] VITALS: BP 112/50
[2021-06-30] MEDS ORDERED: ACETAMINOPHEN 325MG TABLET PO ONE (10:45)
[2021-06-30] MEDS ORDERED: PREN-52 MT (11:49)
== END 2021-06-30 12:39 | disposition home or self-care (01) ==
LOC: ER 09:07
DX: O26.891 Other specified pregnancy related conditions, first trimester (principal); S09.8XXA Other specified injuries of head, initial encounter; Z98.890 Other specified postprocedural states; Z3A.01 Less than 8 weeks gestation of pregnancy; V89.2XXA Person injured in unspecified motor-vehicle accident, traffic, initial encounter; Y93.89 Activity, other specified; Y92.488 Other paved roadways as the place of occurrence of the external cause
CPT/HCPCS: 70551; 81025; 99284

== ENCOUNTER 2022-02-08 05:00 | Emergency (ER) | payer MEDICAID, OTHER ==
[~2022-02-08] VITALS: Ht 147.3 cm; Wt 73.1 kg
[2022-02-08] MEDS ORDERED: KETOROLAC 30MG/ML VIAL IV STA (05:41)
[2022-02-08] MEDS ORDERED: SODIUM CHLORIDE 0.9% 1,000 ML IV ONE (05:45)
[2022-02-08 06:12] LABS: BASOPHILS % 0.4 % (0.0-2.0); EOSINOPHILS % 0.9 % (0.0-5.0); HEMATOCRIT. 38.1 % (36.0-48.0); LYMPHOCYTES % 15.9 % (20.0-50.0); MEAN CORPUSCULAR VOLUME 87.8 fL (81.0-99.0); MEAN PLATELET VOLUME 7.9 fl (7.4-10.4); MONOCYTES % 4.6 % (2.0-8.0); NEUTROPHILS % 78.2 % (40.0-76.0); PLATELET 312 x1000/uL (130-400); RED BLOOD CELL COUNT 4.35 mill/uL (4.2-5.4); RED CELL DISTRIBUTION WIDTH 13.2 % (11.6-14.6)
[2022-02-08 06:14] LABS: CHLORIDE 110 mEq/L (98-107)
[2022-02-08 06:32] LABS: CLARITY URINE CLOUDY (CLEAR); COLOR URINE YELLOW (YELLOW); KETONES URINE TRACE (NEGATIVE); LEUKOCYTE ESTERASE URINE 2+ (NEGATIVE); NITRITE URINE NEGATIVE (NEGATIVE); OCCULT BLOOD URINE 2+ (NEGATIVE); PROTEIN URINE 1+ (NEGATIVE); SPECIFIC GRAVITY URINE 1.031 (1.005-1.030)
[2022-02-08 06:40] VITALS: BP 114/61
[2022-02-08] MEDS ORDERED: OMEP40CA20 MT (07:38)
[2022-02-08] MEDS ORDERED: IBUP-2029 MT (07:38)
[2022-02-08] MEDS ORDERED: ONDA4TAB50 MT (07:38)
[2022-02-08] MEDS ORDERED: CEPH500T MT (07:38)
== END 2022-02-08 07:54 | disposition home or self-care (01) ==
LOC: ER 05:00
DX: K80.50 Calculus of bile duct without cholangitis or cholecystitis without obstruction (principal); Z79.899 Other long term (current) drug therapy
CPT/HCPCS: 36415; 76705; 80053; 81003; 81025; 83690; 85025; 87086; 93005; 96361; 96374; 99285; J1885; J7030